=== PATIENT | male | born 1990 | race Two or more races ===

== ENCOUNTER 2022-06-16 15:51 | Emergency (ER) | payer OTHER ==
[~2022-06-16] VITALS: Ht 198.1 cm; Wt 84.6 kg
[2022-06-16] MEDS ORDERED: LIDOCAINE VISCOUS 2% 15ML UD MT ONE (17:00)
[2022-06-16] MEDS ORDERED: cefTRIAXone SOD 500 MG VL IM ONE (17:00)
[2022-06-16] MEDS ORDERED: DexAMETHasone SOD PHOS 10MG/1ML VIAL INJ IM ONE (17:00)
[2022-06-16 17:40] VITALS: BP 114/71
== END 2022-06-16 17:16 | disposition home or self-care (01) ==
LOC: ER 15:51
DX: J03.90 Acute tonsillitis, unspecified (principal)
CPT/HCPCS: 96372; 99284; J0696; J1100